=== PATIENT | female | born 1935 | race Caucasian/White ===

== ENCOUNTER → 2016-08-11 | Day surgery (SDC) | payer MEDICARE, BC ==
[~2016-08-11] MED LIST: ALPRAZOLAM; ASPIRIN; ASPIRIN81 M2 PO; CENTRUM SILVER PO; CENTRUM SILVER1 EAC3 PO; CLONIDINE; COLESTID PO; CRESTOR PO; CRESTOR10 MG; CRESTOR10 MG DOB; FLUOXETINE HCL10 MG PO; INDERAL LA; INDERAL XL80 MG PO; KAY CIEL20 MEQ/15 PO; LASIX20 MG PO; LEVAQUIN PO; LOTREL 10-20 M1 EACH PO; LOTREL 10-20 MG1 CAP PO; LOTREL 10/20 MG1 CAP; LOVENOX; LOVENOX30 MG/0.3 INJ; LOW DOSE ASPIRI81 M1 PO; MEGACE ORA400 MG/10 PO; NEXIUM; PENTASA 250 MG; POTASSIUM CHLORIDE PO; PREVACID15 M1 PO; PROBIOTIC1 EAC2 PO; PROTONIX20 MG PO; PROZAC10 M1 PO; PROZAC10 MG PO; SYNTHROID; SYNTHROID100 MCG/5 PO; SYNTHROID125 PO; VITAMIN B-121000 MCG PO; VITAMIN B122500 MC1 PO; VITAMIN C1000 M2 PO; VITAMIN C500 M1 PO; VITAMIN D-32000 UNI2 PO; XANAX0.5 M1 PO; XANAX0.5 MG PO; ZOFRAN8 MG PO
--- NOTE | ~2016-08-11 | OR ---
Unit #: [id number] #: [id number] Patient: PHILIPPE BISHOP [id number] [address] [address] [id number] O MR#: [id number] NAME: PHILIPPE BISHOP. ROOM: Date of Procedure: 08/11/2016 Admission Date: 08/11/2016 Surgeon: Red Jaeger M.D. : 1935 Attending Physician: Red Jaeger M.D. Referring Physician: Red Jaeger M.D. Primary Care Physician: Jesus Manuel Nguyễn M.D. OPERATIVE REPORT PREOPERATIVE DIAGNOSES The patient presented to the office with undiagnosed ascites. It is noteworthy that she has had surgery for bladder cancer, status post ureterostomy. She apparently has had four or five therapeutic paracentesis at [facility] and after those, has been told that she has "cirrhosis." She has no stigmata of liver disease nor any clinical or radiologic features suggestive of cirrhosis. I do not have any records available from the [facility]; however, apparently her cytology for cancer cells was negative. An upper endoscopy is being done to look for any indirect evidence of portal hypertension such as esophageal varices or portal hypertensive gastropathy. I have also hinted to the patient if the examination is normal then a liver biopsy is the only way to confirm or refute the diagnosis; however, I see little point in doing the liver biopsy just to satisfy our curiosity. If she does have recurrent ascites, this would be tapped to assess the albumin gradient, which will be helpful. PROCEDURES PERFORMED Esophagogastroduodenoscopy and biopsy. POSTOPERATIVE DIAGNOSES 1. The patient had mild antral gastritis. 2. Small hiatus hernia. 3. Rest of the examination up to the third part of the duodenum was normal. No abnormalities suggestive of portal hypertension such as esophageal varices or portal hypertensive gastropathy were present or seen. RECOMMENDATIONS See the discussion above. The patient will follow up with me in the office in case she has recurrent ascites, this will be a diagnostic and therapeutic paracentesis done here locally. SEDATION USED MAC. DESCRIPTION OF PROCEDURE Following detailed explanation of potential risks and complications of an upper endoscopy, namely perforation, bleeding, and complications related to sedation, the patient was brought to GI lab and laid in the left lateral decubitus position. Lubricated tip of the Olympus video upper endoscope was passed through the bite block into the proximal esophagus under direct vision. The entire esophageal mucosa was examined and Unit #: [id number] #: [id number] Patient: PHILIPPE BISHOP appeared normal. Z-line was nicely demarcated with there being no esophagitis. The patient did have a small hiatus hernia. No esophageal varices were seen. The scope was then advanced into the gastric cavity and the latter was insufflated. Mucosa of the fundus, body, and antrum was examined. Mild prepyloric antral erythema was noted indicating antral gastritis. Pylorus was intubated with visualization of the normal duodenal bulb and second and third part of the duodenum. Upon withdrawal and retroflexion, the incisura, cardia, and greater curve were examined and a biopsy was obtained from the antrum for CLOtest. The scope was then withdrawn into the distal esophagus. The entire esophageal mucosa was examined all the way up to pharynx and no additional findings were noted. The patient tolerated the procedure without any postprocedure complications. Dictated by... Vannesa Palafox/jones TD: 08/11/2016 21:57 JOB #: [id number] CC: Vannesa Barrow M.D. OPERATIVE REPORT Page 1 of 1 X Red Jaeger MD X PROCEDURE OPERATIVE NOTE
== END | disposition home or self-care (01) ==
LOC: COPS 07:14
DX: K29.70 Gastritis, unspecified, without bleeding (principal); K44.9 Diaphragmatic hernia without obstruction or gangrene
CPT/HCPCS: 87077

== ENCOUNTER → 2016-10-10 | Outpatient (CLI) | payer MEDICARE, BC | END | disposition home or self-care (01) | LOC: CECH 12:12 | DX: I89.0 Lymphedema, not elsewhere classified (principal); R18.8 Other ascites; I07.1 Rheumatic tricuspid insufficiency | CPT/HCPCS: 93306 ==

== ENCOUNTER → 2016-10-26 | Outpatient (CLI) | payer MEDICARE, BC ==
--- NOTE | ~2016-10-26 | NM69 ---
[facility] A Service of [facility] RADIOLOGY TEXT RESULTS PATIENT: PHILIPPE BISHOP LOCATION: [facility] : 35 UNIT #: [id number] AGE: [address]: Prem Lopez MD SEX: F ORDER DR: [id number] [facility] [address] [place], [place] [address] [id number] O MR#: [id number] Acc #: [id number] NAME: PHILIPPE BISHOP : 1935 SEX: F STUDY DATE/TIME: 10/26/2016 11:38 UNIT: [facility] ROOM: STUDY DESCRIPTION: RI Pulm Vent and Perf Attending Physician: Prem Lopez M.D. Referring Physician: Prem Lopez M.D. Ordering Physician: Prem Lopez M.D. Primary Care Physician: Jesus Manuel Nguyễn M.D. MEDICAL IMAGING REPORT This report is preliminary unless electronic signature is present EXAM VQ lung scan DATE: 10/26/2016 HISTORY An 81-year-old female with pulmonary hypertension. Three-vessel coronary artery disease. Arteriosclerotic heart disease. Atypical chest pain. Patient states pain under left breast with lower extremity swelling. Pain began approximate 1 month ago. History of bladder surgery. COMPARISON PA lateral chest radiograph, 10/26/2016 at 11:01 FINDINGS Following the inhalation of 31.1 mCi technetium 99m DTPA in aerosol form for the image imaging purposes, and intravenous initiation of 5.7 mCi technetium 99m MAA for perfusion imaging purposes, multiple projections were obtained of the chest compared to the chest radiograph. Normal radiopharmaceutical uptake is demonstrated in both lungs on ventilation perfusion imaging. No VQ mismatch is seen. IMPRESSION Normal, negative VQ lung scan. Dictated by... Donya Jett M.D. THIS IS AN ELECTRONICALLY VERIFIED REPORT Donya Jett M.D. at 10/27/2016 8:33 AM LLH/damaris [facility] A Service of [facility] RADIOLOGY TEXT RESULTS PATIENT: PHILIPPE BISHOP LOCATION: [facility] : 35 UNIT #: [id number] AGE: [address]: Prem Lopez MD SEX: F ORDER DR: TD: 10/26/2016 20:55 JOB #: [id number] MEDICAL IMAGING REPORT Page 1 of 1 COPY
--- NOTE | ~2016-10-26 | CR63 ---
[facility] A Service of [facility] RADIOLOGY TEXT RESULTS PATIENT: PHILIPPE BISHOP LOCATION: [facility] : 35 UNIT #: [id number] AGE: [address]: Prem Lopez MD SEX: F ORDER DR: [id number] [facility] [address] [place], [place] [address] [id number] O MR#: [id number] Acc #: [id number] NAME: PHILIPPE BISHOP : 1935 SEX: F STUDY DATE/TIME: 10/26/2016 11:01 UNIT: [facility] ROOM: STUDY DESCRIPTION: CR Chest 2 View Attending Physician: Prem Lopez M.D. Referring Physician: Prem Lopez M.D. Ordering Physician: Prem Lopez M.D. Primary Care Physician: Jesus Manuel Nguyễn M.D. MEDICAL IMAGING REPORT This report is preliminary unless electronic signature is present EXAMINATION PA and lateral chest. DATE 10/26/2016 HISTORY 81-year-old female with pulmonary hypertension. Shortness of breath intermittently for 1-1/2 years. History of DVT. History of bladder cancer. Remote smoking history, quit 20 years ago. COMPARISON PA and lateral chest radiograph, 10/26/2016. FINDINGS Heart size appears mildly enlarged and appears slightly increased compared to the 2009 examination. Median sternotomy and CABG changes are present. Pulmonary vascular distribution is normal. Lungs are free of acute airspace disease. No acute osseous abnormalities. No pneumothorax or pleural effusion. Cholecystectomy changes. IMPRESSION 1. Mild cardiac enlargement, which appears new or increased compared to the 08/14/2008 examination. 2. No acute airspace disease. 3. CABG changes. Cholecystectomy. Dictated by... Donya Jett M.D. THIS IS AN ELECTRONICALLY VERIFIED REPORT Donya Jett M.D. at 10/27/2016 8:33 AM [facility] A Service [facility] RADIOLOGY TEXT RESULTS PATIENT: PHILIPPE BISHOP LOCATION: [facility] #: [id number] : 35 UNIT #: [id number] AGE: [address]: Prem Lopez MD SEX: F ORDER DR: AFSHIN/lauro TD: 10/26/2016 21:02 JOB #: [id number] MEDICAL IMAGING REPORT Page 1 of 1 COPY
== END | disposition home or self-care (01) ==
LOC: CNUC 10:29
DX: I27.2 Other secondary pulmonary hypertension (principal); I51.7 Cardiomegaly; Z90.49 Acquired absence of other specified parts of digestive tract; Z95.1 Presence of aortocoronary bypass graft
CPT/HCPCS: 71020; 78582; A9540; A9567

== ENCOUNTER 2017-01-06 08:34 | Inpatient (IN) | payer MEDICARE, BC ==
[~2017-01-06] VITALS: Ht 165.1 cm; Wt 49.8 kg
--- NOTE | ~2017-01-06 | CR6 ---
[facility] A Service of [facility] & [facility] RADIOLOGY TEXT RESULTS PATIENT: PHILIPPE BISHOP LOCATION: [facility] 310- : 35 UNIT #: [id number] AGE: [address]: Christian Aguilar MD SEX: F ORDER DR: [id number] [facility] [address] [place], [place] [address] [id number] I MR#: [id number] Acc #: [id number] NAME: PHILIPPE BISHOP : 1935 SEX: F STUDY DATE/TIME: 01/10/2017 17:18 UNIT: C3A U ROOM: 310 STUDY DESCRIPTION: CR Abdomen Portable Sng View Attending Physician: Christian Aguilar M.D. Ordering Physician: Talib Galvan M.D. Primary Care Physician: Jesus Manuel Nguyễn M.D. MEDICAL IMAGING REPORT This report is preliminary unless electronic signature is present EXAM AP view of the abdomen COMPARISON Small bowel follow-through series on the same date. INDICATIONS 81-year-old female with diffuse abdominal pain, nausea and emesis for 4 days. Small bowel obstruction. FINDINGS There has been no significant passage of barium from the small bowel in the right lower quadrant of the abdomen where multiple thickened small bowel loops are seen. In fact, there has been no passage of barium distal to this region and no barium is seen within the colon 5 hours post completion of the patient's small bowel follow-through, which was terminated at approximately 3 hours and 30 minutes. Therefore, atapproximately 8 hours and 30 minutes, there is still no passage of barium into the colon and findings are most consistent with small bowel obstruction due to thickened small bowel loops in the right lower quadrant of the abdomen, better visualized on CT of January 06, 2017 and images from small bowel follow-through earlier today. IMPRESSION No passage of barium from the small bowel in the right lower quadrant of the abdomen. This appearance is unchanged from approximately 5 hours ago. When allowing for the time of the small bowel follow-through at approximately 8 hours and 30 minutes, there is no passage of barium into the colon and no passage of barium beyond the thickened small bowel loops seen on small bowel follow-through earlier today and CT. This is likely the source of the patient's small bowel obstruction. Immediately upstream to the thickened small bowel is diffusely narrowed short-segment loop seen on CT which likely corresponds to at least one of the areas of narrowing [facility] A Service of [facility] RADIOLOGY TEXT RESULTS PATIENT: PHILIPPE BISHOP LOCATION: [facility] 310-01 : 35 UNIT #: [id number] AGE: [address]: Christian Aguilar MD SEX: F ORDER DR: on small bowel follow-through. Dictated by... Talib Galvan M.D. THIS IS AN ELECTRONICALLY VERIFIED REPORT Talib Galvan M.D. at 01/16/2017 4:54 PM CATHIE/selena TD: 01/11/2017 11:38 JOB #: [id number] MEDICAL IMAGING REPORT Page 1 of 1 COPY
--- NOTE | ~2017-01-06 | CO ---
Unit #: [id number] #: [id number] Patient: PHILIPPE BISHOP [id number] [address] [place], [place] [address] [id number] I MR#: [id number] NAME: PHILIPPE BISHOP. ROOM: 310 Age: 81 Sex: F Admission Date: 01/06/2017 : 1935 Attending Physician: Christian Aguilar M.D. Primary Care Physician: Jesus Manuel Nguyễn M.D. Consultation Date: 01/07/2017 CONSULTATION REPORT CHIEF COMPLAINT Abdominal distention. HISTORY OF PRESENT ILLNESS This is an 81-year-old lady, whom we were asked to see for possible small-bowel obstruction. She has been having some abdominal distention with nausea and vomiting. Her last bowel movement or flatus was on . She has had previous episodes of this in the past that resolved with conservative measures. PAST MEDICAL HISTORY Significant for history of bladder cancer, coronary artery disease, hypertension, history of DVTs, elevated lipids, hypothyroidism, and reflux. PAST SURGICAL HISTORY She has had a cystectomy with ileal conduit. She has also had a total abdominal hysterectomy secondary to endometrial cancer with radiation therapy. She has also undergone coronary artery bypass grafting, cholecystectomy, and an ex lap for small bowel obstruction, as well as a hip replacement. SOCIAL HISTORY She denies any tobacco or alcohol use. MEDICATIONS Please see med rec list for list of medications. FAMILY HISTORY Negative. REVIEW OF SYSTEMS Negative for fevers or weight loss. She denies any chest pain or shortness of air. PHYSICAL EXAMINATION VITAL SIGNS: Temperature is 97.9, heart rate 70, respiratory rate 16, blood pressure is 146/66. GENERAL: She is in no acute distress. HEENT: Pupils are equal and reactive to light and accommodation, and her extraocular muscles are intact. NECK: Without masses or bruits. LUNGS: Show good breath sounds bilaterally with equal air exchange. CARDIAC: Shows regular rate and rhythm without murmur. ABDOMEN: Soft, nondistended, and no focal tenderness. She does have a Unit #: [id number] #: [id number] Patient: PHILIPPE BISHOP right upper quadrant ileal conduit. EXTREMITIES: Without edema or cyanosis. NEUROLOGIC: She is alert and oriented. There are no focal deficits. DIAGNOSTIC STUDIES IMAGING STUDIES: CT scan was consistent with small-bowel obstruction. LABORATORY RESULTS: White count is 8000, hemoglobin is 10. OVERALL IMPRESSION This lady has likely partial small-bowel obstruction. She has an NG tube that is not putting out very much. It needs to be flushed and irrigated. I will go ahead and check an interval KUB today and if I saw there is an improvement, we will be hopefully be able to get her NG tube out in the morning and I will review her x-rays tomorrow as well. Further recommendations are to follow, but she should be able to get through this without an exploratory laparotomy. Dictated by... Magan Castellon III, M.D. VCL/jones TD: 01/08/2017 15:06 JOB #: [id number] CONSULTATION REPORT Page 1 of 1 X Magan Castellon III, MD X CONSULTATION REPORT
--- NOTE | ~2017-01-06 | A ---
[facility] Nutrition Therapy DATE: 01/08/17 Patient: PHILIPPE Winn EDNA Physician: SUJEY Address: [address] [place] [address] Room/Bed: [address] [place] [address], Zip: [place] [address] Admit Date: 01/06/17 Date of : 35 Height: 5 5 Weight: 107 48.6 NUTRITIONAL ASSESSMENT: REASON: Low BMI Admitting dx: 81 y/o female admitted with N/V x 3 days [employer]ILY [employer], found to have SBO on CT scan PMH: SBO, bladder/endometrial cancer, CAD, HTN, HLD, DVT, GERD, acute on chronic CKD, hypothyroidism Anthropometrics: Ht: 65", Wt: 99 vs 107 lbs, BMI: 16 (underweight) Labs: Na 146, glucose 115, POC 119-130, GFR 35.1 Meds: PPI, synthroid, Vit B12, zofran prn I/O & Bowel function: Last BM 01/04, NGT in place to LWS Skin Integrity: Reviewed; no significant issues, no edema Assessment: Chart reviewed, events noted. See admitting dx and PMH as stated above. Patient lives with her daughter and has had previous admissions to this facility. Found to have SBO on CT scan per H&P, however CT scan performed yesterday 01/07 shows no evidence of SBO or free air. The patient is clinically underweight. RD previously assessed on 08/05/15- note reviewed. The patient's weight is quite stable since that time, UBW was 130 lbs a few years ago in 2013, so gradual weight loss has occured since that time. She scored 0 points on the malnutrition risk screen. She has been on clear liquids since admission (x 2 days) with NGT to LWS. Will order mixed beckham Ensure clear as desired and follow-up. See recs below. Dx: 1) Inadequate energy intake r/t diet not yet advanced AEB clears x 2 days, need for ONS. 2) Underweight r/t advancing age, diet hx, PMH AEB BMI 16. Intervention: Oral diet as tolerated, Ensure clear BID Monitoring, Evaluation and Goals: 1. Tolerance of oral diet advancement with minimal c/o N/V. 2. Gradual weight gain towards a healthy BMI range. Monitor: per protocol, criteria to determine if above goals met [facility] Nutrition Therapy DATE: 01/08/17 Patient: PHILIPPE BISHOP Physician: SUJEY Address: [address] [place] [address] Room/Bed: [address] [place] [address], Zip: [place] [address] Admit Date: 01/06/17 Date of : 35 Height: 5 5 Weight: 107 48.6 Recommendations: 1. Advance oral diet to regular as tolerated. Once PO intake is > 50% of meals change to [address] ordering mixed beckham Ensure clear BID, once diet advanced beyond clears consider changing to Ensure Enlive to provide more kcals/protein. 2. Zofran prn. 3. Please weigh q 3 days for monitoring purposes, as the patient is clinically underweight. RD will follow Moderate nutrition risk Respectfully, Yazmin Schultz, CAROLIN, LD [facility] cc: client file
--- NOTE | ~2017-01-06 | CR6 ---
[facility] Service of [facility] & [facility] RADIOLOGY TEXT RESULTS PATIENT: PHILIPPE BISHOP LOCATION: [facility] 310-01 : 35 UNIT #: [id number] AGE: [address]: Chyna Reyes MD SEX: F ORDER DR: [id number] [facility] [address] [place], [place] [address] [id number] I MR#: [id number] Acc #: [id number] NAME: PHILIPPE BISHOP. : 1935 SEX: F STUDY DATE/TIME: 01/06/2017 16:05 UNIT: [address] ROOM: [facility] STUDY DESCRIPTION: CR Abdomen Portable Sng View Attending Physician: Chyna Reyes M.D. Ordering Physician: Aisha Linn P.A.-C. Primary Care Physician: Jesus Manuel Nguyễn M.D. MEDICAL IMAGING REPORT This report is preliminary unless electronic signature is present EXAM Frontal abdomen 01/06/2017 INDICATIONS NG tube placement. Nausea and vomiting for 3 days. Uterine cancer. TECHNIQUE Frontal abdomen correlated with CT 01/06/2017 FINDINGS Enteric tube tip is at the level of the midbody stomach. Oral contrast material was present within the bowel. The gallbladder is surgically absent. IMPRESSION 1. The tip of the enteric tube is at the level of the midbody stomach. Dictated by... Micah Hernandez M.D. THIS IS AN ELECTRONICALLY VERIFIED REPORT Micah Hernandez M.D. at 01/07/2017 11:24 PM NOÉ/doug TD: 01/07/2017 05:43 JOB #: [id number] MEDICAL IMAGING REPORT Page 1 of 1 COPY
--- NOTE | ~2017-01-06 | CR236 ---
[facility] A Service of [facility] & [facility] RADIOLOGY TEXT RESULTS PATIENT: PHILIPPE BISHOP LOCATION: [facility] 310- : 35 UNIT #: [id number] AGE: [address]: Christian Aguilar MD SEX: F ORDER DR: [id number] [facility] [address] [place], [place] [address] [id number] I MR#: [id number] Acc #: [id number] NAME: PHILIPPE BISHOP : 1935 SEX: F STUDY DATE/TIME: 01/10/2017 12:19 UNIT: C3A PCU ROOM: 310 STUDY DESCRIPTION: CR Small Bowel Sbft W Films Attending Physician: Christian Aguilar M.D. Ordering Physician: Mihir Smith M.D. Primary Care Physician: Jesus Manuel Nguyễn M.D. MEDICAL IMAGING REPORT This report is preliminary unless electronic signature is present EXAM Fluoroscopic small bowel follow-through. COMPARISON CT abdomen and pelvis dated January 06, 2017 and small bowel follow-through series dated June 15, 2016, as well as June 13, 2016. INDICATION 81-year-old female with diffuse abdominal pain and cramping, nausea and emesis for 4 days. History of uterine cancer post hysterectomy in 2001, subsequently treated with radiation therapy. The patient most recently diagnosed with bladder carcinoma in 2015 and she is post cystectomy with urinary diversion. FINDINGS Total of 17 images were obtained. Total fluoro time was 0.8 minutes. Findings of delayed small bowel transit without visualization of the colon at 3 hours and 15 minutes. There is similar appearing distended small bowel loops in the pelvis as compared to recent CT performed 4 days ago. These appear to be increased in caliber from small bowel follow-through dated June 15, 2016. In the right pelvis, there is multifocal narrowing of a small bowel loop. There appears to be somewhat of a shouldering appearance in each area of narrowing when comparing to CT January 06, 2017, appears to correspond to an abnormal loop of bowel that appears angulated at the right pelvis on CT January 06, 2017. This is distal to the urinary diversion anastomoses of the small bowel. It appears the patient is post right hemicolectomy with apparent anastomosis of the small bowel to the transverse colon in the midline upper abdomen, seen on CT of October 11, 2015. In the right lower quadrant of the abdomen on the most recent CT of January 06, 2017, it appears there is irregular thickening of small bowel loops in the right lower quadrant of the abdomen which may be accounting for a stringlike appearance of the small bowel in [facility] A Service of [facility] RADIOLOGY TEXT RESULTS PATIENT: PHILIPPE BISHOP LOCATION: [facility] 310-01 : 35 UNIT #: [id number] AGE: [address]: Christian Aguilar MD SEX: F ORDER DR: this location on the 1 hour overhead image and barium is never really seen to progress beyond the small bowel in the right lower quadrant of the abdomen. Right total hip arthroplasty is visualized but incompletely imaged on the current exam. No evidence of complication. Prior cholecystectomy is noted. IMPRESSION Findings are most consistent with qgx-nc-prwhpegb grade small bowel obstruction. Today's small bowel follow through demonstrates delayed small bowel transit without passage of transit beyond small bowel loops in the right lower quadrant of the abdomen. In this location, there is multifocal narrowing of the small bowel and on comparison CT of January 06, 2017, there appears to be multifocal thickening of small bowel loops in this location. Etiology of this is uncertain. This could represent infectious or inflammatory process. Neoplasm is not entirely excluded. This does not have the typical appearance of postradiation stricture. Delayed AP view of the abdomen has been ordered to be performed at 5 p.m. today. Please see that exam to evaluate passage of barium in the bowel. The patient is post cystectomy with ileal conduit diversion. Patient also appears to be post right hemicolectomy. Degenerative changes also noted at the left hip, with near beyp-wg-[id number] touching and geode formation in the left femoral head. IMPRESSION Findings most consistent with low to moderate grade small bowel obstruction, likely due to multifocal thickening of distal small bowel in the right lower quadrant of the abdomen in this patient post right hemicolectomy. Patient is also post cystostomy with an ileal conduit diversion. On the CT of January 06, 2017, there appears to be multifocal thickening of small bowel loops in the right lower quadrant, likely accounting for the narrowing seen on the current small bowel follow-through. This is causing delayed transit of barium, which does not appear to progress past this point at 3 hours and 15 minutes, consistent with delayed small bowel transit. Differential diagnosis for the findings in the small bowel includes thickening due to infectious or inflammatory process. Neoplasm not entirely excluded. Please see radiograph of the abdomen ordered for 5:00 p.m. today to evaluate interval passage of barium from the thickened portion of the small bowel. Dictated by... Talib Galvan M.D. THIS IS AN ELECTRONICALLY VERIFIED REPORT [facility] A Service of [facility] RADIOLOGY TEXT RESULTS PATIENT: PHILIPPE BISHOP LOCATION: [facility] 310-01 : 35 UNIT #: [id number] AGE: [address]: Christian Aguilar MD SEX: F ORDER DR: Talib Galvan M.D. at 01/16/2017 4:03 PM CATHIE/abelino TD: 01/11/2017 02:11 JOB #: [id number] MEDICAL IMAGING REPORT Page 1 of 1 COPY
--- NOTE | ~2017-01-06 | CR4 ---
[facility] A Service of [facility] & [facility] RADIOLOGY TEXT RESULTS PATIENT: PHILIPPE BISHOP LOCATION: [facility] 310- : 35 UNIT #: [id number] AGE: [address]: Chyna Reyes MD SEX: F ORDER DR: [id number] [facility] [address] [place], [place] [address] [id number] I MR#: [id number] Acc #: [id number] NAME: PHILIPPE BISHOP : 1935 SEX: F STUDY DATE/TIME: 01/07/2017 10:15 UNIT: [address] ROOM: 310 STUDY DESCRIPTION: CR Abdomen Flat Upright or Dec Attending Physician: Chnya Reyes M.D. Ordering Physician: Magan Castellon III, M.D. Primary Care Physician: Jesus Manuel Nguyễn M.D. MEDICAL IMAGING REPORT This report is preliminary unless electronic signature is present EXAM Abdomen flat and upright 2 views 01/07/2017 HISTORY Nausea and vomiting for 4 days and history of uterine cancer. FINDINGS 2 views of the abdomen demonstrate residual radiographic contrast material within the colon. There is no evidence of bowel obstruction or free air. Enteric tube tip is in the proximal stomach. Surgical clips right upper quadrant suggest prior cholecystectomy. IMPRESSION No interval change compared with 01/06/2017. Dictated by... Davey Puentes M.D. THIS IS AN ELECTRONICALLY VERIFIED REPORT Davey Puentes M.D. at 01/08/2017 6:36 AM KRT/to TD: 01/07/2017 15:21 JOB #: [id number] MEDICAL IMAGING REPORT Page 1 of 1 COPY
--- NOTE | ~2017-01-06 | EKG ---
PATIENT: PHILIPPE BISHOP UNIT #: [id number] Ventricular Rate: 75 BPM Atrial Rate: 75 BPM P-R Interval: 140 ms QRS Duration: 86 ms Q-T Interval: 376 ms QTC Calculation(Bezet): 419 ms P [place]: 34 degrees Calculated R [place]: 6 degrees Calculated T [place]: 61 degrees Diagnosis Line: Sinus rhythm with frequent Premature ventricular Diagnosis Line: complexes in a pattern of bigeminy Diagnosis Line: Nonspecific ST and T wave abnormality Diagnosis Line: Abnormal ECG Diagnosis Line: When compared with ECG of 14-JUN-2016 04:51, Diagnosis Line: Premature ventricular complexes are now Present Diagnosis Line: Questionable change in QRS axis Diagnosis Line: T wave inversion now evident in Anterior leads Diagnosis Line: QT has shortened Diagnosis Line: Confirmed by UZMA DESAI MD ([id number]) on 01/08/2017 Diagnosis Line: 1:57:25 PM INTERPRETING MD: GISELLE PERKINS
--- NOTE | ~2017-01-06 | CO ---
Unit #: [id number] #: [id number] Patient: PHILIPPE BISHOP [id number] [address] [address] [id number] I MR#: [id number] NAME: PHILIPPE BISHOP. ROOM: 310 Age: 81 Sex: F Admission Date: 01/06/2017 : 1935 Attending Physician: Christian Aguilar M.D. Primary Care Physician: Jesus Manuel Nguyễn M.D. Consultation Date: 01/11/2017 CONSULTATION REPORT REASON FOR CONSULTATION History of bladder cancer and small bowel obstruction. HISTORY OF PRESENT ILLNESS Patient is an 81-year-old female with a history of bladder cancer. She underwent a radical cystectomy with ileal conduit in May [address] Helder Ackerman at the [facility]. She also has a history of radiation for uterine cancer in 2001. Patient has had recurrent small bowel obstruction. She has been admitted multiple times for this. She presents with approximately a 3 day history of upper abdominal pain, nausea and a little bit of vomiting. She did pass gas yesterday. CT of the abdomen and pelvis reveals a high grade small bowel obstruction as well as chronic bilateral hydronephrosis. Her creatinine is 1.9. PAST MEDICAL HISTORY 1. Bladder cancer. 2. Endometrial cancer. 3. Coronary artery disease. 4. DVT. 5. Hypertension. 6. Hyperlipidemia. 7. Hypothyroidism. PAST SURGICAL HISTORY 1. Radical cystectomy with ileal conduit. 2. Radical hysterectomy. 3. Hip replacement. 4. Lysis of adhesions. 5. Cholecystectomy. 6. Coronary bypass graft. SOCIAL HISTORY Patient lives with her daughter. Negative for tobacco, negative for alcohol. FAMILY HISTORY Notable for coronary artery disease. MEDICATIONS AND ALLERGIES Documented in the chart. REVIEW OF SYSTEMS Positive for abdominal pain, positive for nausea, positive for vomiting. Unit #: [id number] #: [id number] Patient: PHILIPPE BISHOP IMAGING CT scan of the abdomen and pelvis as well as small bowel follow through consistent with high grade small bowel obstruction. CT with chronic bilateral hydronephrosis which has been present since at least July of 2015. PHYSICAL EXAMINATION VITAL SIGNS: Temperature 98.3, blood pressure 102/54, pulse 61, respirations 16. GENERAL: This is a well developed, well nourished white female in no acute distress. HEENT: Normocephalic, atraumatic. Extraocular movements intact. NECK: Supple with no lymphadenopathy. LUNGS: Respirations are unlabored. She is breathing comfortably. ABDOMEN: Soft. It is not distended. There is no rebound, there is no guarding. There is a right lower quadrant urostomy which is patent and productive. EXTREMITIES: No clubbing, cyanosis, or edema. LABS Creatinine is 1.9. Her baseline creatinine is approximately 1.3. White blood cell count 5.2. IMAGING CT of the abdomen and pelvis and KUB with small bowel follow through reviewed as above. ASSESSMENT AND PLAN Bladder cancer with history of radical cystectomy and ileal conduit with small bowel obstruction. Hopefully, the patient will open up with conservative management. If exploratory laparotomy is needed, we will be available. Consider may also be given to transferring the patient to [facility] where she had her original surgery. Regarding her bilateral hydronephrosis, this is chronic in nature but if her creatinine worsens we may need to consider nephrostomy tubes. Dictated by... Julio Cesar Jolly M.D. LISA/jorge a TD: 01/11/2017 08:20 JOB #: [id number] Unit #: [id number] #: [id number] Patient: PHILIPPE BISHOP CONSULTATION REPORT Page 1 of 1 X Julio Cesar Jolly MD X CONSULTATION REPORT
--- NOTE | ~2017-01-06 | CT4 ---
[facility] A Service of [facility] & [facility] RADIOLOGY TEXT RESULTS PATIENT: PHILIPPE BISHOP LOCATION: [facility] 310- : 35 UNIT #: [id number] AGE: [address]: Christian Aguilar MD SEX: F ORDER DR: [id number] [facility] [address] [place], [place] [address] [id number] I MR#: [id number] Acc #: [id number] NAME: PHILIPPE BISHOP. : 1935 SEX: F STUDY DATE/TIME: 01/06/2017 10:37 UNIT: C3A PCU ROOM: 310 STUDY DESCRIPTION: CT Abd and Pelv Wo Cont Attending Physician: Chyna Reyes M.D. Ordering Physician: Aisha Linn P.A.-C. Primary Care Physician: Jesus Manuel Nguyễn M.D. MEDICAL IMAGING REPORT This report is preliminary unless electronic signature is present EXAM CT of abdomen and pelvis without contrast. INDICATIONS Diffuse abdominal pain for [address] of the abdomen and pelvis was performed with oral contrast only. Coronal and sagittal reformatted images were obtained. This CT exam was performed with one or more of the following radiation dose reduction techniques: automatic exposure control, adjustment of mA and/or kV according to patient size, and iterative reconstruction. COMPARISON Comparison is made with 06/13/2016. FINDINGS Minimal atelectasis in the lung bases. Cholecystectomy. Stable tiny presumed cyst in the liver. Spleen is unremarkable. Stable bilateral hydronephrosis. The adrenal glands are unremarkable. Pancreas is unremarkable. There are dilated oral contrast and fluid-filled loops of small bowel present. There is some bowel wall thickening in the region of the jejunum. The transition point to some more normal-caliber bowel appears to be at a suture line located at the lower abdomen just to the right of midline on image 81. Noted is a small amount of contrast distal to the transition point, but the majority of the contrast is located proximal to the transition point. PELVIS: Small amount of free fluid is seen in the pelvis. Patient has had a previous cystectomy with ileal conduit. Patient also has had a STS. [facility] A Service of [facility] & [facility] RADIOLOGY TEXT RESULTS PATIENT: PHILIPPE BISHOP [facility] [id number] UNIT #: [id number] AGE: [address]: Christian Aguilar MD SEX: F ORDER DR: prior partial colectomy. The bone windows show degenerative change of the spine. IMPRESSION 1. High-grade bowel obstruction as described. Patient has dilated loops of jejunum with some wall thickening up to the level of a anastomosis located within the lower abdomen just to the right of midline below the umbilicus. Distally to the anastomosis, the bowel loops are more normal in caliber. The small amount of contrast is seen distal to the transition point. Findings are consistent with a high-grade bowel obstruction. 2. Additional findings as described above. Dictated by... Lorne Hsieh M.D. THIS IS AN ELECTRONICALLY VERIFIED REPORT Lorne Hsieh M.D. at 01/09/2017 7:20 AM RAJWINDER/lauro TD: 01/06/2017 22:39 JOB #: [id number] MEDICAL IMAGING REPORT Page 1 of 1 COPY
--- NOTE | ~2017-01-06 | HP ---
Unit #: [id number] #: [id number] Patient: PHILIPPE BISHOP [id number] [place], [place] [address] [id number] I MR#: [id number] NAME: PHILIPPE BISHOP ROOM: 310 Age: 81 Sex: F Admission Date: 01/06/2017 : 1935 Attending Physician: Chyna Reyes M.D. Primary Care Physician: Jesus Manuel Nguyễn M.D. HISTORY AND PHYSICAL CHIEF COMPLAINT Nausea, vomiting. HPI The patient is an 81-year-old female with past medical history of small bowel obstruction, bladder cancer, endometrial cancer, coronary artery disease, hypertension, hyperlipidemia, DVT, hypothyroidism, GERD, who presented to the emergency department for evaluation of the above. The patient states that she was in her usual state of health until the afternoon of January 04, 2017. She states that she developed abdominal pain. She states that it was initially in the upper abdomen and then radiated to the lower abdomen. She described it as "pain." It is intermittent in nature. She states that it is alleviated somewhat by vomiting, exacerbated by eating. She has had similar pain in the past with bowel obstructions. She states that her last bowel movement was yesterday morning, a small amount and loose. She has not passed any gas since that time. She denies any fever, no cough or cold symptoms. In the emergency department, CT of the abdomen and pelvis was done and showed findings concerning for bowel obstruction. She is being admitted to [facility] for evaluation and further treatment. She received 500 mL of normal saline as well as 2 mg of morphine and 4 mg of Zofran in the emergency department. PAST MEDICAL HISTORY 1. Admission to [facility] June 14 through the 2016 for high grade small bowel obstruction, likely secondary to adhesions. She also had a urinary tract infection with Klebsiella and Proteus. She was discharged home on Levaquin. 2. Bladder cancer diagnosed in May 2015, status post cystectomy with ileal conduit, followed by Drs. Ackerman and Ed at [facility]. She did not have any chemotherapy or radiation. 3. Endometrial cancer diagnosed in 2001, status post total abdominal hysterectomy and radiation treatments. 4. Coronary artery disease, status post coronary artery bypass grafting in 1995, followed by Dr. Lopez. 5. Remote history of DVT. 6. Hypertension. 7. Hyperlipidemia. 8. Hypothyroidism. 9. GERD. PAST SURGICAL HISTORY Unit #: [id number] #: [id number] Patient: PHILIPPE BISHOP 1. Cholecystectomy. 2. Lysis of adhesions in 2005. 3. Hip replacement in 2008. 4. Cystectomy with ileal conduit. 5. Hysterectomy. 6. Coronary artery bypass grafting. SOCIAL HISTORY The patient lives with her daughter. There is no tobacco or alcohol use. Her code status is a Full Code. FAMILY HISTORY Notable for coronary artery disease. ALLERGIES Codeine, Augmentin, sulfamethoxazole, Levaquin, atorvastatin, Zetia. HOME MEDICATIONS 1. Inderal XL 80 mg daily. 2. Lotrel 10/20 daily. 3. Crestor 10 mg daily. 4. Aspirin 81 mg daily. 5. Protonix 20 mg daily. 6. Prozac 10 mg daily. 7. Xanax 0.5 mg p.r.n. 8. Synthroid 0.25 mg daily. 9. Lasix 20 mg daily. 10. Potassium twice daily. 11. Multivitamin daily. 12. Vitamin C 500 mg twice daily. 13. Vitamin B12 twice daily. 14. Vitamin D3 2000 units daily. REVIEW OF SYSTEMS A complete review of systems is negative except as indicated in the HPI. DIAGNOSTIC TESTS IMAGING: CT of the abdomen and pelvis shows findings concerning for bowel obstruction. LABORATORY: Complete blood count notable for hemoglobin and hematocrit of 10.1 and 32.1 respectively. Urinalysis notable for 2+ leukocyte esterase, 2+ protein, 1+ blood with 5-10 red blood cells, 50-100 white blood cells, negative for bacteria. Comprehensive metabolic panel notable for BUN and creatinine of 27 and 1.9 respectively, alkaline phosphatase 103, total protein 9.2, lipase is 21. PHYSICAL EXAM VITAL SIGNS: Temperature is 98.1, pulse 72, respirations 16, blood pressure 149/82. Oxygen saturation 97% on room air. GENERAL: The patient is a very pleasant female who is awake and alert, in no acute distress. HEENT: The head is atraumatic. Mucous membranes are moist. NECK: Supple. Trachea is midline. CARDIOVASCULAR: Regular rate and rhythm. LUNGS: Clear to auscultation bilaterally with no increased work of Unit #: [id number] #: [id number] Patient: PHILIPPE BISHOP breathing. ABDOMEN: Soft. She is tender to palpation throughout. Bowel sounds are decreased. The patient does have an ileal conduit with clear urine. NEURO: The patient is awake and alert. She follows commands. PSYCH: Mood and affect are normal. The patient is cooperative. SKIN: Skin of examined areas is warm and dry. EXTREMITIES: Nontender with no pedal edema. ASSESSMENT The patient is an 81-year-old female with: 1. Small bowel obstruction. 2. Microcytic anemia. The patient's hemoglobin was 8.6 on June 16, 2016. It is 10.1 today. 3. Acute on chronic kidney disease. Creatinine is 1.9. It was 1.2 on June 16, 2016. 4. Possible urinary tract infection although I suspect contamination. I have not given antibiotics but will order culture. 5. Bladder cancer, status post cystectomy with ileal conduit. 6. Endometrial cancer, status post hysterectomy and radiation. 7. Coronary artery disease, status post coronary artery bypass grafting. 8. Hypertension. 9. Hyperlipidemia. 10. Remote history of DVT. 11. Hypothyroidism. 12. GERD. PLAN 1. Admit to low level monitor. 2. Normal saline at 75 mL/hour. 3. NPO. 4. NG-tube to low wall suction. 5. P.r.n. morphine. 6. P.r.n. Zofran. 7. Consult Dr. Bentley regarding small bowel obstruction. 8. Urine culture and sensitivity on urine in the lab. 9. EKG if not done. 10. Serial cardiac enzymes. 11. TSH. 12. P.r.n. hydralazine. 13. Repeat labs in the morning. 14. SCDs for DVT prophylaxis. 15. Additional workup and consultants based on above. Dictated by Vannesa Charles TD: 01/06/2017 14:42 JOB #: [id number] Unit #: [id number] #: [id number] Patient: PHILIPPE BISHOP HISTORY AND PHYSICAL Page 1 of 1 X Chyna Reyes MD X HISTORY AND PHYSICAL
--- NOTE | ~2017-01-06 | EKG ---
PATIENT: PHILIPPE BISHOP UNIT #: [id number] Ventricular Rate: 72 BPM Atrial Rate: 72 BPM P-R Interval: 136 ms QRS Duration: 82 ms Q-T Interval: 412 ms QTC Calculation(Bezet): 451 ms P [place]: 0 degrees Calculated R [place]: -14 degrees Calculated T [place]: -86 degrees Diagnosis Line: Sinus rhythm with frequent Premature ventricular Diagnosis Line: complexes in a pattern of bigeminy Diagnosis Line: Cannot rule out Anterior infarct , age Diagnosis Line: undetermined Diagnosis Line: ST and T wave abnormality, consider lateral ischemia Diagnosis Line: Abnormal ECG Diagnosis Line: When compared with ECG of 06-JAN-2017 13:56, Diagnosis Line: T wave inversion now evident in Inferior leads Diagnosis Line: T wave inversion less evident in Lateral leads Diagnosis Line: Confirmed by PHONG ASTORGA MD ([id number]) on Diagnosis Line: 01/12/2017 10:44:48 AM INTERPRETING MD: RIZWAN PERKINS
--- NOTE | ~2017-01-06 | CR2 ---
[facility] A Service of [facility] & [facility] RADIOLOGY TEXT RESULTS PATIENT: PHILIPPE BISHOP LOCATION: [facility] 310- : 35 UNIT #: [id number] AGE: [address]: Christian Aguilar MD SEX: F ORDER DR: [id number] [facility] [address] [place], [place] [address] [id number] I MR#: [id number] Acc #: [id number] NAME: PHILIPPE BISHOP. : 1935 SEX: F STUDY DATE/TIME: 01/11/2017 11:16 UNIT: C3A PCU ROOM: 310 STUDY DESCRIPTION: CR Abdomen Acute Series Attending Physician: Christian Aguilar M.D. Ordering Physician: Suraj Malone M.D. Primary Care Physician: Jesus Manuel Nguyễn M.D. MEDICAL IMAGING REPORT This report is preliminary unless electronic signature is present EXAM Abdomen acute series. HISTORY Pain. Abdomen pain, nausea, vomiting 5 days duration. TECHNIQUE AP radiograph of the chest is presented with supine and upright radiographs of the abdomen and pelvis. COMPARISON 01/20/2017 FINDINGS Status post median sternotomy and CABG. Borderline cardiac enlargement. Mildly tortuous descending thoracic aorta. The lungs are well inflated without evidence of acute infectious or inflammatory disease, pleural effusion, or pneumothorax and no suspicious nodule. Bowel gas pattern remains abnormal. Appearance consistent with small bowel obstruction. There is retained enteric contrast in the stomach from small bowel follow-through which was initiated on 01/10/2017. There is mild gastric distension. Abnormally dilated loops of small bowel throughout the visualized abdomen and pelvis measuring up to approximately 4.9 cm in diameter, previously 4.4 cm in diameter. A greater number of distended loops are visualized. There is contrast in some previously unopacified loops of small bowel in the right lower quadrant, but I do not confidently see contrast in colon. Prior CT examination 01/06/2017 showed abnormally narrowed/strictured loops of small bowel in the right lower quadrant. Given the degree of gastric and small bowel distension, consider gastric decompression with enteric tube. There is no free air. Degenerative changes in the spine. Marked degenerative changes left hip. Stable. Prior right hip arthroplasty. [facility]. [facility] A Service of [facility] RADIOLOGY TEXT RESULTS PATIENT: PHILIPPE BISHOP LOCATION: [facility] 310-01 : 35 UNIT #: [id number] AGE: [address]: Christian Aguilar MD SEX: F ORDER DR: Dictated by... Lemuel Greene M.D. THIS IS AN ELECTRONICALLY VERIFIED REPORT Lemuel Greene M.D. at 01/13/2017 10:02 PM CLAUDETTE/abelino TD: 01/11/2017 22:03 JOB #: [id number] MEDICAL IMAGING REPORT Page 1 of 1 COPY
--- NOTE | ~2017-01-06 | DS ---
Unit #: [id number] #: [id number] Patient: SOCO OREILLY [id number] [address] [place], [place] [address] [id number] MR#: [id number] NAME: SOCO OREILLY ROOM: 310 Age: 81 Sex: F Admission Date: 01/06/2017 : 1935 Discharge Date: Attending Physician: Christian Aguilar M.D. Primary Care Physician: Jesus Manuel Nguyễn M.D. DISCHARGE SUMMARY PRIMARY DIAGNOSIS Small bowel obstruction. SECONDARY DIAGNOSES 1. Hypoglycemia, resolved. 2. 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 3. Acute kidney injury on top of chronic kidney disease stage 3. 4. Anemia, stable. 5. History of bladder cancer, status post ileal conduit. 6. Mild protein malnutrition. 7. Hypertension. 8. Gastroesophageal reflux disease. 9. Hypothyroidism. 10. Coronary artery disease with history of coronary artery bypass grafting. 11. History of endometrial cancer. 12. Insomnia, resolved. 13. Possible history of recurrent paracenteses at [facility] per my discussion with Dr. Mosley at [facility] earlier today. Unknown diagnosis which led to these paracenteses. 14. History of deep venous thrombosis. HOSPITAL COURSE Ms. Soco Oreilly is a frail 81-year-old white female with a very complicated surgical history including radical urinary cystectomy with ileal conduit performed by Dr. Ackerman and Dr. Ward at [facility]. The bladder cancer was diagnosed in 2015. Endometrial cancer diagnosed in 2001 with a history of total abdominal hysterectomy and radiation thereafter. She has had a history of exploratory laparotomy and right hemicolectomy and possibly a partial small bowel resection for history of high grade obstruction, likely secondary to adhesions. She has had a history of coronary artery bypass grafting. The patient was admitted to our hospital on January [address] with evidence [address] CT scanning of high grade small bowel obstruction. She was followed with serial imaging and attempts to give bowel rest and slow advancement of diet. However, we were never able to get her diet advanced where she could tolerate it. She would have recurrent vomiting and continues to do so in the last 24 hours. She had a small bowel follow through with last image on yesterday evening which showed no passage of barium into the colon and no passage of barium through thickened small bowel loops. General surgery here as well as urology here felt that the patient's case, considering her surgical history, was too complex for surgical Unit #: [id number] #: [id number] Patient: SOCO OREILLY intervention here and felt that the patient would be best served by a transfer to [facility] where she could see the [place] services that are more familiar with her for surgical intervention and to her small bowel obstruction. Likely, her regular urologist would need to be involved. During her hospitalization, she did have some mild hypoglycemia and was temporarily on glucose containing fluids for this. This improved and she has been off of fluids for that for 2-3 days. Patient did have an elevated creatinine that got up to 1.9 at the time of admission. With IV fluids, her creatinine got down to 1.3 on January 09. There was no creatinine on January 10 and on January 11 the patient's creatinine was noted to be up to 1.9. This may be due to the fact that we have held her IV fluids in the last two days in anticipation of her eating better which did not come to fruition but it may also be related to a possible urinary tract infection. The patient had a urinalysis on January 06 that showed 2+ leukocyte esterase and 50-100 white blood cells but the subsequent culture was mixed and unrevealing coming from her ileostomy. Second urinalysis on January 09 showed innumerable white blood cells with 3+ leukocyte esterase. The patient was started on Rocephin at that time. On the day of discharge, the patient's urine culture is coming back with methicillin resistant Staph aureus and has been given a dose of vancomycin and taken off of her Rocephin. DISCHARGE DISPOSITION To acute inpatient hospital. DISCHARGE STATUS Stable. DISCHARGE ACTIVITY With assistance only. DISCHARGE DIET Clear liquids. DISCHARGE FOLLOWUP Will be determined upon discharge from [facility]. DISCHARGE MEDICATIONS 1. Prozac 10 mg p.o. daily. 2. Zofran 4 mg IV q.6 hours p.r.n. for nausea or vomiting. 3. Xanax 0.5 mg p.o. q. h.s. p.r.n. insomnia. 4. Inderal LA 80 mg p.o. daily. 5. Crestor 10 mg p.o. on Sunday, Sunday and Sunday. 6. Hydralazine 10 mg IV q.6 hours p.r.n. for systolic blood pressure greater than 180 or diastolic blood pressure greater than 110. 7. Centrum Silver multivitamin, one tablet p.o. daily. 8. Aspirin 81 mg p.o. daily. 9. Morphine sulfate 1-2 mg IV q.4 hours p.r.n. pain. 10. Protonix 20 mg IV daily. 11. Synthroid 125 mcg p.o. daily. 12. Vitamin 12 1000 mcg p.o. daily. 13. Amlodipine 10 mg p.o. daily. 14. Vancomycin 1 g IV q.12 hours. Unit #: [id number] #: [id number] Patient: SOCO OREILLY Dictated by... Vannesa Estrada/jorge a TD: 01/11/2017 13:02 JOB #: [id number] DISCHARGE SUMMARY Page 1 of 1 X Christian Aguilar MD X DISCHARGE SUMMARY
[~2017-01-06 08:34] MED LIST changes: -CENTRUM SILVER1 EAC3 PO; -CRESTOR PO; -POTASSIUM CHLORIDE PO; -PROZAC10 M1 PO; -VITAMIN B122500 MC1 PO; -VITAMIN C500 M1 PO; -VITAMIN D-32000 UNI2 PO; -XANAX0.5 M1 PO
[2017-01-06] MEDS ORDERED: LOTREL 10-20 M1 EACH PO (08:51)
[2017-01-06] MEDS ORDERED: CRESTOR PO (08:51)
[2017-01-06] MEDS ORDERED: INDERAL XL80 MG PO (08:51)
[2017-01-06] MEDS ORDERED: PROTONIX20 MG PO (08:52)
[2017-01-06] MEDS ORDERED: PROZAC10 M1 PO (08:52)
[2017-01-06] MEDS ORDERED: ASPIRIN81 M2 PO (08:52)
[2017-01-06] MEDS ORDERED: XANAX0.5 M1 PO (08:52)
[2017-01-06] MEDS ORDERED: LASIX20 MG PO (08:53)
[2017-01-06] MEDS ORDERED: SYNTHROID125 PO (08:53)
[2017-01-06] MEDS ORDERED: CENTRUM SILVER1 EAC3 PO (08:56)
[2017-01-06] MEDS ORDERED: POTASSIUM CHLORIDE PO (08:56)
[2017-01-06] MEDS ORDERED: VITAMIN C500 M1 PO (08:57)
[2017-01-06] MEDS ORDERED: VITAMIN B122500 MC1 PO (08:57)
[2017-01-06] MEDS ORDERED: VITAMIN D-32000 UNI2 PO (08:58)
[2017-01-06 09:15] LABS: BASOPHIL% 0.4 % (0-2.5); EOSINOPHIL% 0.2 % (0.0-7.0); HEMATOCRIT 32.1 % (35.0-45.0); HEMOGLOBIN 10.1 gm/dL (12.0-16.0); LYMPHOCYTE# 1.2 X10e3 (1.0-3.5); MEAN CORPUSCULAR HEMOGLOBIN 26.5 PG (28-34); MEAN CORPUSCULAR HGB CONC 31.6 g/dL (30-36); MEAN PLATELET VOLUME 8.2 FL (6.5-11.5); MONOCYTE# 0.4 X10e3 (0-1.0); MONOCYTE% 4.7 % (3.0-12.0); NEUTROPHIL# 7.2 X10e3 (1.5-7.1); NEUTROPHIL% 80.7 % (40-75); PLATELET COUNT 277 X10e3 (140-420); RED BLOOD COUNT 3.82 X10e (3.90-5.30); RED CELL DISTRIBUTION WIDTH 15.2 % (11.0-15.5); WHITE BLOOD COUNT 8.9 X10e3 (4.0-10.5)
[2017-01-06 09:17] LABS: DIFF IND NO
[2017-01-06 09:29] LABS: URINE SOURCE CLEAN CATCH
[2017-01-06 09:37] LABS: URINE APPEARANCE CLOUDY; URINE BILIRUBIN NEG (NEG); URINE BLOOD 1+ (NEG); URINE COLOR YELLOW; URINE GLUCOSE NEG (NEG); URINE KETONE 1+ (NEG); URINE LEUKOCYTE ESTERASE 2+ (NEG); URINE NITRATE NEG (NEG); URINE PROTEIN 2+ (NEG); URINE SPECIFIC GRAVITY 1.013 (1.003-1.035); URINE UROBILINOGEN 0.2 MG/DL (NEG)
[2017-01-06 09:39] LABS: CULTURE INDICATED? YES; URINE BACTERIA AUWI NEG (NEGATIVE); URINE SQUAMOUS EPITHELIAL CELL FEW /[HPF]; UWBCS1 AUWI 50-100 (0-5)
[2017-01-06 09:46] LABS: ALBUMIN SERUM 3.7 g/dL (3.5-5.0); BILIRUBIN, DIRECT 0.2 mg/dL (0.0-0.2); BILIRUBIN,INDIRECT 0.4 mg/dL (0.0-0.9); BILIRUBIN,TOTAL 0.6 mg/dL (0.2-2.0); BUN/CREATININE RATIO 14.21; CALCIUM SERUM 9.2 mg/dL (8.4-10.2); CREATININE SERUM 1.9 mg/dL (0.6-1.4); GLOM FILT RATE Estimated 24.3 mL/min (>60); POTASSIUM 3.6 mmol/L (3.5-5.1); PROTEIN TOTAL SERUM 9.2 g/dL (6.0-8.3)
[2017-01-06 09:48] LABS: U HYALINE CASTS AUWI 0-2 /[LPF]; URINE MUCUS PRESENT; URINE TRANSITIONAL EPI CELLS FEW /[HPF]
[2017-01-06 20:55] LABS: CK TOTAL 45 IU/L (26-140)
[2017-01-07 10:17] LABS: HEMATOCRIT 29.4 % (35.0-45.0); HEMOGLOBIN 9.1 gm/dL (12.0-16.0); MEAN CELL VOLUME 87.1 FL (83-96); MEAN CORPUSCULAR HEMOGLOBIN 26.8 PG (28-34); MEAN CORPUSCULAR HGB CONC 30.8 g/dL (30-36); MEAN PLATELET VOLUME 8.2 FL (6.5-11.5); RED BLOOD COUNT 3.37 X10e (3.90-5.30); RED CELL DISTRIBUTION WIDTH 15.9 % (11.0-15.5); WHITE BLOOD COUNT 6.4 X10e3 (4.0-10.5)
[2017-01-07 10:42] LABS: ALBUMIN SERUM 3.1 g/dL (3.5-5.0); BILIRUBIN,TOTAL 1.2 mg/dL (0.2-2.0); BUN/CREATININE RATIO 18.66; CALCIUM SERUM 8.8 mg/dL (8.4-10.2); CREATININE SERUM 1.5 mg/dL (0.6-1.4); GLOM FILT RATE Estimated 32.4 mL/min (>60); POTASSIUM 3.6 mmol/L (3.5-5.1); PROTEIN TOTAL SERUM 7.6 g/dL (6.0-8.3)
[2017-01-08 08:01] LABS: HEMATOCRIT 27.4 % (35.0-45.0); HEMOGLOBIN 8.7 gm/dL (12.0-16.0); MEAN CELL VOLUME 84.8 FL (83-96); MEAN CORPUSCULAR HEMOGLOBIN 26.9 PG (28-34); MEAN CORPUSCULAR HGB CONC 31.7 g/dL (30-36); RED BLOOD COUNT 3.23 X10e (3.90-5.30); RED CELL DISTRIBUTION WIDTH 15.9 % (11.0-15.5); WHITE BLOOD COUNT 5.9 X10e3 (4.0-10.5)
[2017-01-08 08:23] LABS: BUN/CREATININE RATIO 14.28; CALCIUM SERUM 9.1 mg/dL (8.4-10.2); CREATININE SERUM 1.4 mg/dL (0.6-1.4); GLOM FILT RATE Estimated 35.1 mL/min (>60); MAGNESIUM 1.9 mg/dL (1.6-3.0); POTASSIUM 3.5 mmol/L (3.5-5.1)
[2017-01-08 16:20] LABS: HEMATOCRIT 26.6 % (35.0-45.0); HEMOGLOBIN 8.2 gm/dL (12.0-16.0); MEAN CELL VOLUME 84.5 FL (83-96); MEAN CORPUSCULAR HEMOGLOBIN 26.2 PG (28-34); MEAN PLATELET VOLUME 8.2 FL (6.5-11.5); RED BLOOD COUNT 3.15 X10e (3.90-5.30); RED CELL DISTRIBUTION WIDTH 15.6 % (11.0-15.5); WHITE BLOOD COUNT 6.2 X10e3 (4.0-10.5)
[2017-01-09 06:31] LABS: HEMATOCRIT 25.8 % (35.0-45.0); HEMOGLOBIN 8.3 gm/dL (12.0-16.0); MEAN CELL VOLUME 83.8 FL (83-96); MEAN CORPUSCULAR HEMOGLOBIN 26.9 PG (28-34); MEAN CORPUSCULAR HGB CONC 32.1 g/dL (30-36); MEAN PLATELET VOLUME 8.4 FL (6.5-11.5); RED BLOOD COUNT 3.08 X10e (3.90-5.30); RED CELL DISTRIBUTION WIDTH 15.5 % (11.0-15.5); WHITE BLOOD COUNT 5.1 X10e3 (4.0-10.5)
[2017-01-09 06:54] LABS: ALBUMIN SERUM 2.9 g/dL (3.5-5.0); BILIRUBIN,TOTAL 0.8 mg/dL (0.2-2.0); BUN/CREATININE RATIO 13.07; CALCIUM SERUM 8.7 mg/dL (8.4-10.2); CREATININE SERUM 1.3 mg/dL (0.6-1.4); GLOM FILT RATE Estimated 38.4 mL/min (>60); POTASSIUM 3.5 mmol/L (3.5-5.1); PROTEIN TOTAL SERUM 6.7 g/dL (6.0-8.3)
[2017-01-09 16:57] LABS: URINE APPEARANCE TURBID; URINE BILIRUBIN NEG (NEG); URINE BLOOD 2+ (NEG); URINE COLOR YELLOW; URINE GLUCOSE NEG (NEG); URINE KETONE NEG (NEG); URINE LEUKOCYTE ESTERASE 3+ (NEG); URINE NITRATE NEG (NEG); URINE PROTEIN 2+ (NEG); URINE SPECIFIC GRAVITY 1.011 (1.003-1.035); URINE UROBILINOGEN 0.2 MG/DL (NEG)
[2017-01-09 16:59] LABS: CULTURE INDICATED? YES; URBCS1 AUWI 25-50 /[HPF] (0-2); URINE BACTERIA AUWI 4+ (NEGATIVE); URINE SQUAMOUS EPITHELIAL CELL OCC /[HPF]; UWBCS1 AUWI INNUM (0-5)
[2017-01-11 05:27] LABS: MEAN CELL VOLUME 84.9 FL (83-96); MEAN CORPUSCULAR HEMOGLOBIN 27.1 PG (28-34); MEAN CORPUSCULAR HGB CONC 31.9 g/dL (30-36); MEAN PLATELET VOLUME 8.8 FL (6.5-11.5); RED BLOOD COUNT 2.95 X10e (3.90-5.30); RED CELL DISTRIBUTION WIDTH 15.7 % (11.0-15.5); WHITE BLOOD COUNT 5.2 X10e3 (4.0-10.5)
[2017-01-11 06:14] LABS: BUN/CREATININE RATIO 14.21; CALCIUM SERUM 8.7 mg/dL (8.4-10.2); CREATININE SERUM 1.9 mg/dL (0.6-1.4); GLOM FILT RATE Estimated 24.3 mL/min (>60); POTASSIUM 4.4 mmol/L (3.5-5.1)
== END 2017-01-12 01:39 | DRG 388 ==
LOC: CED 08:34 → C3A PCU 13:30 → CED 18:29 → C3A PCU 01-08 07:08
PROVIDERS: Family Medicine; Internal Medicine; Internal Medicine Gastroenterology; Physician Assistant
DX: K56.5 Intestinal adhesions [bands] with obstruction (postinfection) (principal); E43 Unspecified severe protein-calorie malnutrition; N17.9 Acute kidney failure, unspecified; N39.0 Urinary tract infection, site not specified; Z68.1 Body mass index [BMI] 19.9 or less, adult; N13.6 Pyonephrosis; B95.62 Methicillin resistant Staphylococcus aureus infection as the cause of diseases classified elsewhere; E16.2 Hypoglycemia, unspecified; I12.9 Hypertensive chronic kidney disease with stage 1 through stage 4 chronic kidney disease, or unspecified chronic kidney disease; N18.3 Chronic kidney disease, stage 3 (moderate); D50.9 Iron deficiency anemia, unspecified; K21.9 Gastro-esophageal reflux disease without esophagitis; E03.9 Hypothyroidism, unspecified; I25.10 Atherosclerotic heart disease of native coronary artery without angina pectoris; Z95.1 Presence of aortocoronary bypass graft; G47.00 Insomnia, unspecified; E78.5 Hyperlipidemia, unspecified; Z85.89 Personal history of malignant neoplasm of other organs and systems; Z85.51 Personal history of malignant neoplasm of bladder; Z86.718 Personal history of other venous thrombosis and embolism; Z90.710 Acquired absence of both cervix and uterus; Z90.49 Acquired absence of other specified parts of digestive tract; Z93.2 Ileostomy status; Z96.649 Presence of unspecified artificial hip joint; Z88.5 Allergy status to narcotic agent; Z88.2 Allergy status to sulfonamides; Z88.8 Allergy status to other drugs, medicaments and biological substances; Z82.49 Family history of ischemic heart disease and other diseases of the circulatory system
CPT/HCPCS: 36415; 74000; 74020; 74022; 74176; 74250; 80048; 80053; 80076; 81003; 82550; 82947; 83690; 83735; 84443; 84484; 85025; 85027; 87086; 87088; 87186; 93005; 96374; 96375; 97116; 97161; 97165; 99285; C9113; G8978-GP; G8979-GP; G8980-GP; G8987-GO; G8988-GO; G8989-GO; J0696; J2270; J2405; J3370